=== PATIENT | male | born 2000 | race Two or more races ===

== ENCOUNTER 2024-11-22 13:13 | Outpatient (AMB) | payer BC, MEDICAID, SELFPAY ==
[2024-11-22 13:29] VITALS: BP 117/75; PULSE 81; RESP 19; TEMP 36.7; O2SAT 95; BMI 30.7
--- NOTE | 2024-11-22 13:29 | GSCOFFNT_ITS ---
Vital Signs - [facility] 11/22/24 13:29 Height 1.73 m Height Method Measured Weight 91.796 kg Weight Measurement Method Standing Scale BMI 30.7 BP 117/75 Blood Pressure Source Automatic Cuff Blood Pressure Location Left Upper Arm Position Sitting Respiration 19 Pulse 81 Pulse Source Monitor Temp 98.1 F Temp Source Temporal Artery Scan Pulse Oximetry (%) 95 Oxygen Delivery Method Room Air Med/Allergies Allergies & Medications Allergies No Known Allergies Allergy (Verified 11/22/24 13:30) Medication Reconciliation tramadol 50 mg tablet 50 mg PO Q6H PRN pain #30 tabs 10/08/23 [Rx Confirmed 11/22/24] MA Intake Visit Data Collection New Patient or Established: Established Patient (seen at [facility] within 3 years) Seen by Clinical Staff ONLY (RN/MA): No Reason for Visit:: PILONIDAL CYSTECTOMY Pain Present Currently: Yes (TAILBONE) Pain scale:: 4 Pain Scale Used: Lomas-Rene/Numerical Aircraft Technician Required: No PCP or OBGYN visit in last 3 months: Yes Hx Now: No Do You Feel Safe at Home: Yes Authorities Contacted: N/A Smoking Status Smoking Status: Never smoker Immunization / Flu Flu Vaccine in the Last 12 Months: Yes Flu Vaccine Exclusion Criteria: Already Received Past Medical History Past Medical History NEUROLOGIC: Negative Neurological Disorders or Seizures CARDIAC: Negative Cardiac Disorders or Congestive Heart Failure RESPIRATORY: Negative Chronic Obstructive Pulmonary Disease (COPD), Sputum Production, Wheezing, Smoking, Smoking Cessation Counseling, Smoking Exposure or Tobacco Use GASTROINTESTINAL: Negative Gastrointestinal Disorders or Hepatitis GENITOURINARY: Negative Genitourinary Disorders or Renal Disease ENDOCRINE: Negative Endocrine Disorders, Diabetes Mellitus Type 1 or Diabetes Mellitus Type 2 HEMATOLOGIC: Negative Blood Disorders OTHER HISTORY: Negative Hospitalization, Autoimmune Disease, Shingles, Blood Transfusions, Blood Transfusion Reaction, Anesthesia Reactions or Cancer Family History FAMILY HISTORY: Negative Family Psychiatric Problems, Family Respiratory Disorders, Family Cardiac Disorders, Family Gastrointestinal Problems, Family Cancer, Family Surgery or Family Anesthesia Reaction Social History SMOKING STATUS: Smoking status: Never smoker ALCOHOL: Alcohol Intake: Current ALCOHOL FREQUENCY: Alcohol Intake Frequency: holidays/special occasions only HOUSING: Housing: House [facility] HPI Narrative 24M s/p pilonidal cystectomy 09/2023, healed as of Dec 2023 presenting with pain and swelling to the area. Pt reports he noticed the wound opened about a month ago, he was packing it but then he noticed the more inferior aspect of the incision became more swollen and painful. He denies any fever and has not had any recent drainage, is otherwise feeling well with no other changes in his health ROS Review of Systems Systems Reviewed: All systems reviewed, normal except as documented Objective/Exam General General Appearance: alert, cooperative and well groomed Resp Respiratory exam: Absent respiratory distress Back Back exam: Present other (pilonidal cyst swelling and tenderness toward the gluteal cleft; probing this wound caused the more superior ulceration to open and drain blood. No surrounding erythema) Assessment & Plan Diagnosis / Problem List (1) Chronic recurrent pilonidal cyst: Status: Acute Assessment & Plan: 24M s/p pilonidal cystectomy 09/2023, healed as of Dec 2023 now presenting with signs and symptoms of recurrence. For now I explained pt needs repeat I&D to address the swelling, and he may now want to consider hair removal (he stated that he did not try this earlier due to the cost) but that a repeat excision could be undertaken once the infection improves Plan: F/u in 2 weeks Office Procedures GNS Level of Care Nursing/Assessment Patient Status: Established Patient Nursing Assessment/Reassesment: Medication Reconciliation, Update PMH in EMR and Vital Signs Coordination of Care: Complex Care and Chronic Disease 1-5, Consent,records obtained, informed consent, Education Simp Pt/Fam, Results/Orders obtained and Staff clarify orders Established Patient Charge Established Patient Point Assignment: 90 Established Patient Point Charge: EP Level 3 (80-115) Patient Portal Questionaires Social History Living Situation History Housing: House Tobacco History Smoking Status: Never smoker Alcohol History Alcohol Intake: Current Alcohol Intake Frequency: holidays/special occasions only Domestic Abuse History Do You Feel Safe at Home: Yes Review of Systems Report any current symptoms Only answer those that you have currently: Past Medical History Past Medical History Have you ever been diagnosed with any of the following: Neurological Problems Seizures: No Cardiology Problems Congestive Heart Failure: No Respiratory Problems Chronic Obstructive Pulmonary Disease (COPD): No Cough: No Wheezing: No Smoking: No Smoking Cessation Counseling: No Smoking Exposure: No Tobacco Use: No Stomache/Intestinal Problems Hepatitis: No Genital/Urinary Problems Renal Disease: No Endocrine Problems Diabetes Mellitus Type 1: No Diabetes Mellitus Type 2: No Other Problems Hospitalization: No Autoimmune Disease: No Shingles: No Blood Transfusions: No Blood Transfusion Reaction: No Anesthesia Reactions: No Cancer: No
== END 2024-11-22 13:52 | disposition home or self-care (01) ==
LOC: HODSRG 13:13
PROVIDERS: PCP Physician Assistant Medical; Referring Provider Physician Assistant Medical; Supervising Provider Surgery; Visit Provider Surgery
DX: L05.91 Pilonidal cyst without abscess (principal)
CPT/HCPCS: 99213; G0463

== ENCOUNTER 2024-12-13 13:00 | Outpatient (AMB) | payer BC, MEDICAID, SELFPAY ==
[2024-12-13 13:05] VITALS: BP 122/75; PULSE 70; RESP 16; TEMP 36.5; O2SAT 97; BMI 31.4
--- NOTE | 2024-12-13 13:05 | GSCOFFNT_ITS ---
Vital Signs - [facility] 12/13/24 13:05 Height 1.73 m Height Method Measured Weight 94.092 kg Weight Measurement Method Standing Scale BMI 31.4 BP 122/75 Blood Pressure Source Automatic Cuff Blood Pressure Location Left Upper Arm Position Sitting Respiration 16 Pulse 70 Pulse Source Monitor Temp 97.7 F Temp Source Temporal Artery Scan Pulse Oximetry (%) 97 Oxygen Delivery Method Room Air Med/Allergies Allergies & Medications Allergies No Known Allergies Allergy (Verified 12/13/24 13:06) Medication Reconciliation tramadol 50 mg tablet 50 mg PO Q6H PRN pain #30 tabs 10/08/23 [Rx Confirmed 12/13/24] MA Intake Visit Data Collection New Patient or Established: Established Patient (seen at [facility] within 3 years) Seen by Clinical Staff ONLY (RN/JUDY): No Reason for Visit:: 2 WEEK F/U CYST Pain Present Currently: No Pain Scale Used: Lomas-Rene/Numerical Calender Machine Operator Helper Required: No PCP or OBGYN visit in last 3 months: Yes Hx Now: No Do You Feel Safe at Home: Yes Authorities Contacted: N/A Smoking Status Smoking Status: Never smoker Immunization / Flu Flu Vaccine in the Last 12 Months: No Flu Vaccine Exclusion Criteria: Refused by Patient Past Medical History Past Medical History NEUROLOGIC: Negative Neurological Disorders or Seizures CARDIAC: Negative Cardiac Disorders or Congestive Heart Failure RESPIRATORY: Negative Chronic Obstructive Pulmonary Disease (COPD), Sputum Production, Wheezing, Smoking, Smoking Cessation Counseling, Smoking Exposure or Tobacco Use GASTROINTESTINAL: Negative Gastrointestinal Disorders or Hepatitis GENITOURINARY: Negative Genitourinary Disorders or Renal Disease ENDOCRINE: Negative Endocrine Disorders, Diabetes Mellitus Type 1 or Diabetes Mellitus Type 2 HEMATOLOGIC: Negative Blood Disorders OTHER HISTORY: Negative Hospitalization, Autoimmune Disease, Shingles, Blood Transfusions, Blood Transfusion Reaction, Anesthesia Reactions or Cancer Family History FAMILY HISTORY: Negative Family Psychiatric Problems, Family Respiratory Disorders, Family Cardiac Disorders, Family Gastrointestinal Problems, Family Cancer, Family Surgery or Family Anesthesia Reaction Social History SMOKING STATUS: Smoking status: Never smoker ALCOHOL: Alcohol Intake: Current ALCOHOL FREQUENCY: Alcohol Intake Frequency: holidays/special occasions only HOUSING: Housing: House HPI HPI Narrative 24M s/p pilonidal cystectomy 09/2023 here for follow up of recurrent drainage from the area. Pt states that for the last few days he has not had any drainage, he continues to cover the wound but his pain is also improved ROS Review of Systems Systems Reviewed: All systems reviewed, normal except as documented Objective/Exam General General Appearance: alert, cooperative and well groomed Resp Respiratory exam: Absent respiratory distress Back Back exam: Present other (pilonidal cyst with punctate opening, no surrounding erythema, no bleeding or drainage, wound cauterized with silver nitrate) Assessment & Plan Diagnosis / Problem List (1) Chronic recurrent pilonidal cyst: Status: Acute Assessment & Plan: 24M s/p pilonidal cystectomy 09/2023 here for follow up of recurrent drainage from the area. I explained that repeat cystectomy should still be postponed until the wound is fully healed. All questions were answered and pt is agreeable with this plan Plan: F/u in 3 weeks Orders: Orders Silver nitrate applicator topical stick Today Office Procedures GNS Level of Care Nursing/Assessment Patient Status: Established Patient Nursing Assessment/Reassesment: Medication Reconciliation, Update PMH in EMR and Vital Signs Coordination of Care: Complex Care and Chronic Disease 1-5, Consent,records obtained, informed consent, Education Simp Pt/Fam, Results/Orders obtained and Staff clarify orders Established Patient Charge Established Patient Point Assignment: 90 Established Patient Point Charge: EP Level 3 (80-115) Surgical Proc/IM SQ injection Minor Surgical Procedure: Yes (SILVER NITRATE ) Medication Given Medication Given Medication Given: Yes Documented Dose Given: 2 Route: TOPICAL Office Meds silver nitrate applicators 75 %-25 % topical stick Performing Provider: Monse Gasca MD Performing Location: [facility] Administered by: Monse Gasca MD on 12/13/24 13:47 Dose Route Admin Location Dispensed Lot Number Expiration Date Pack age [facility] Registered Nurse Cardiac Telemetry 2 ea topical TOPICAL 2 ea [id number] 10/15/26 Patient Portal Questionaires Social History Living Situation History Housing: House Tobacco History Smoking Status: Never smoker Alcohol History Alcohol Intake: Current Alcohol Intake Frequency: holidays/special occasions only Domestic Abuse History Do You Feel Safe at Home: Yes Review of Systems Report any current symptoms Only answer those that you have currently: Past Medical History Past Medical History Have you ever been diagnosed with any of the following: Neurological Problems Seizures: No Cardiology Problems Congestive Heart Failure: No Respiratory Problems Chronic Obstructive Pulmonary Disease (COPD): No Cough: No Wheezing: No Smoking: No Smoking Cessation Counseling: No Smoking Exposure: No Tobacco Use: No Stomache/Intestinal Problems Hepatitis: No Genital/Urinary Problems Renal Disease: No Endocrine Problems Diabetes Mellitus Type 1: No Diabetes Mellitus Type 2: No Other Problems Hospitalization: No Autoimmune Disease: No Shingles: No Blood Transfusions: No Blood Transfusion Reaction: No Anesthesia Reactions: No Cancer: No
== END 2024-12-13 13:35 | disposition home or self-care (01) ==
LOC: HODSRG 13:00
PROVIDERS: PCP Physician Assistant Medical; Referring Provider Physician Assistant Medical; Supervising Provider Surgery; Visit Provider Surgery
DX: L05.91 Pilonidal cyst without abscess (principal)
CPT/HCPCS: 17250; 99213; A9270; G0463

== ENCOUNTER 2025-01-03 12:55 | Outpatient (AMB) | payer BC, MEDICAID, SELFPAY ==
[2025-01-03 13:10] VITALS: BP 118/71; PULSE 47; RESP 16; TEMP 36.3; O2SAT 98; BMI 31.2
--- NOTE | 2025-01-03 13:10 | PD.GSCLVISIT ---
Vital Signs - [facility] 01/03/25 13:10 Height 1.73 m Height Method Measured Weight 93.128 kg Weight Measurement Method Standing Scale BMI 31.2 BP 118/71 Blood Pressure Source Automatic Cuff Blood Pressure Location Left Upper Arm Position Sitting Respiration 16 Pulse 47 L Pulse Source Monitor Temp 97.4 F Temp Source Temporal Artery Scan Pulse Oximetry (%) 98 Oxygen Delivery Method Room Air Med/Allergies Allergies & Medications Allergies No Known Allergies Allergy (Verified 01/03/25 13:11) Medication Reconciliation tramadol 50 mg tablet 50 mg PO Q6H PRN pain #30 tabs 10/08/23 [Rx Confirmed 01/03/25] MA Intake Visit Data Collection New Patient or Established: Established Patient (seen at [facility] within 3 years) Seen by Clinical Staff ONLY (RN/MA): No Reason for Visit:: 3 WEEK F/U Pain Present Currently: No Pain Scale Used: Lomas-Rene/Numerical Telecommunication Operator Required: No PCP or OBGYN visit in last 3 months: Yes Hx Now: No Do You Feel Safe at Home: Yes Authorities Contacted: N/A Smoking Status Smoking Status: Never smoker Immunization / Flu Flu Vaccine in the Last 12 Months: Yes Flu Vaccine Exclusion Criteria: Already Received Past Medical History Past Medical History NEUROLOGIC: Negative Neurological Disorders or Seizures CARDIAC: Negative Cardiac Disorders or Congestive Heart Failure RESPIRATORY: Negative Chronic Obstructive Pulmonary Disease (COPD), Sputum Production, Wheezing, Smoking, Smoking Cessation Counseling, Smoking Exposure or Tobacco Use GASTROINTESTINAL: Negative Gastrointestinal Disorders or Hepatitis GENITOURINARY: Negative Genitourinary Disorders or Renal Disease ENDOCRINE: Negative Endocrine Disorders, Diabetes Mellitus Type 1 or Diabetes Mellitus Type 2 HEMATOLOGIC: Negative Blood Disorders OTHER HISTORY: Negative Hospitalization, Autoimmune Disease, Shingles, Blood Transfusions, Blood Transfusion Reaction, Anesthesia Reactions or Cancer Family History FAMILY HISTORY: Negative Family Psychiatric Problems, Family Respiratory Disorders, Family Cardiac Disorders, Family Gastrointestinal Problems, Family Cancer, Family Surgery or Family Anesthesia Reaction Social History SMOKING STATUS: Smoking status: Never smoker ALCOHOL: Alcohol Intake: Current ALCOHOL FREQUENCY: Alcohol Intake Frequency: holidays/special occasions only HOUSING: Housing: House HPI HPI Narrative HISTORY OF PRESENT ILLNESS I, Monse Gasca, have obtained verbal consent from the patient, to be recorded during this encounter which may include, but not limited to, medical history, examination, treatment plans, and relevant health information.? Patient was informed that recording will be read and reviewed by myself before inclusion in the medical chart. The patient is a 24-year-old male who presents for follow-up of a pilonidal cyst, which surgically excised 09/2023. He reports that the cyst initially closed after treatment at the last visit but has since reopened. The more inferior aspect of the wound has remained closed. He continues to experience some drainage from the cyst, which was minimal until yesterday when he noticed an increase in blood. He attributes this to his physical activity at work. He is not experiencing any fever or other symptoms. He expresses interest in scheduling another surgery, possibly in early 2025, as his current condition does not interfere with his job. He also wishes to schedule a follow-up appointment to monitor the cyst. He mentions that his insurance has changed to a private one through his employer. ROS Review of Systems Systems Reviewed: All systems reviewed, normal except as documented Objective/Exam General General Appearance: alert, cooperative and well groomed Resp Respiratory exam: Absent respiratory distress Back Back exam: Present other (pilonidal cyst with open sinus toward the superior aspect, which was cauterized again with silver nitrate today. No surrounding erythema, no fluctuance or tenderness) Assessment & Plan Diagnosis / Problem List (1) Chronic recurrent pilonidal cyst: Status: Acute Assessment & Plan: The pilonidal cyst is open but does not appear infected. There is some drainage with a slight increase in blood, likely due to physical activity. A chemical treatment was applied today to manage the cyst temporarily. The patient is advised to contact the office to schedule an appointment within 30 days of the planned surgery. If the cyst continues to drain, another chemical treatment can be administered. If the cyst remains stable, surgery can be scheduled for a later date, potentially next year, depending on the patient's work schedule and preference. The patient has private insurance which may facilitate obtaining a vacuum machine to speed up healing post-surgery. Risks, benefits, and alternatives of treatment were discussed. The chemical treatment is a temporary measure to manage the cyst and may cause some burning sensation. Surgery is a more definitive treatment option but can be scheduled at the patient's convenience. The patient is informed that the surgery is typically performed on Wednesdays and should be scheduled when the cyst is not actively infected. The patient is also advised to call the office if any problems arise before the next appointment. Plan: F/u in 2 mos Orders: Orders Silver nitrate applicator topical stick Today Office Procedures GNS Level of Care Nursing/Assessment Patient Status: Established Patient Nursing Assessment/Reassesment: Medication Reconciliation, Update PMH in EMR and Vital Signs Coordination of Care: Complex Care and Chronic Disease 1-5, Education Complex Pt/Fam, Consent,records obtained, informed consent, Results/Orders obtained and Staff clarify orders Established Patient Charge Established Patient Point Assignment: 95 Established Patient Point Charge: EP Level 3 (80-115) Surgical Proc/IM SQ injection Minor Surgical Procedure: Yes (SILVER NITRATE) Medication Given Medication Given Medication Given: Yes Documented Dose Given: 2 Route: TOPICAL Office Meds silver nitrate applicators 75 %-25 % topical stick Performing Provider: Monse Gasca MD Performing Location: [facility] Administered by: Monse Gasca MD on 01/03/25 13:58 Dose Route Admin Location Dispensed Lot Number Expiration Date Package NDC NDC Mover 2 ea topical TOPICAL 2 ea [id number] 03/30/25 Patient Portal Questionaires Social History Living Situation History Housing: House Tobacco History Smoking Status: Never smoker Alcohol History Alcohol Intake: Current Alcohol Intake Frequency: holidays/special occasions only Domestic Abuse History Do You Feel Safe at Home: Yes Review of Systems Report any current symptoms Only answer those that you have currently: Past Medical History Past Medical History Have you ever been diagnosed with any of the following: Neurological Problems Seizures: No Cardiology Problems Congestive Heart Failure: No Respiratory Problems Chronic Obstructive Pulmonary Disease (COPD): No Cough: No Wheezing: No Smoking: No Smoking Cessation Counseling: No Smoking Exposure: No Tobacco Use: No Stomache/Intestinal Problems Hepatitis: No Genital/Urinary Problems Renal Disease: No Endocrine Problems Diabetes Mellitus Type 1: No Diabetes Mellitus Type 2: No Other Problems Hospitalization: No Autoimmune Disease: No Shingles: No Blood Transfusions: No Blood Transfusion Reaction: No Anesthesia Reactions: No Cancer: No
== END 2025-01-03 14:04 | disposition home or self-care (01) ==
LOC: HODSRG 12:55
PROVIDERS: PCP Physician Assistant Medical; Referring Provider Physician Assistant Medical; Supervising Provider Surgery; Visit Provider Surgery
DX: L05.91 Pilonidal cyst without abscess (principal)
CPT/HCPCS: 17250; 99213; A9270; G0463

== ENCOUNTER 2025-03-07 13:07 | Outpatient (AMB) | payer BC, MEDICAID, SELFPAY ==
[2025-03-07 13:40] VITALS: BP 116/72; PULSE 78; RESP 16; TEMP 36.5; O2SAT 97; BMI 32.4
--- NOTE | 2025-03-07 13:40 | GSCOFFNT_ITS ---
Vital Signs - [facility] 03/07/25 13:40 Height 1.73 m Height Method Measured Weight 97.097 kg Weight Measurement Method Standing Scale BMI 32.4 BP 116/72 Blood Pressure Source Automatic Cuff Blood Pressure Location Left Upper Arm Position Sitting Respiration 16 Pulse 78 Pulse Source Monitor Temp 97.7 F Temp Source Temporal Artery Scan Pulse Oximetry (%) 97 Oxygen Delivery Method Room Air Med/Allergies Allergies & Medications Allergies No Known Allergies Allergy (Verified 03/07/25 13:43) Medication Reconciliation tramadol 50 mg tablet 50 mg PO Q6H PRN pain #30 tabs 10/08/23 [Rx Confirmed 03/07/25] mupirocin 2 % topical ointment (Centany) 1 applic topical BID #22 grams 03/07/25 [Rx] MA Intake Visit Data Collection New Patient or Established: Established Patient (seen at [facility] within 3 years) Seen by Clinical Staff ONLY (RN/MA): No Reason for Visit:: 2 MONTH F/U Pain Present Currently: No Pain Scale Used: Lomas-Rene/Numerical Hub Cutter Required: No PCP or OBGYN visit in last 3 months: Yes Hx Now: No Do You Feel Safe at Home: Yes Authorities Contacted: N/A Smoking Status Smoking Status: Never smoker Immunization / Flu Flu Vaccine in the Last 12 Months: No Flu Vaccine Exclusion Criteria: Refused by Patient Past Medical History Past Medical History NEUROLOGIC: Negative Neurological Disorders or Seizures CARDIAC: Negative Cardiac Disorders or Congestive Heart Failure RESPIRATORY: Negative Chronic Obstructive Pulmonary Disease (COPD), Sputum Production, Wheezing, Smoking, Smoking Cessation Counseling, Smoking Exposure or Tobacco Use GASTROINTESTINAL: Negative Gastrointestinal Disorders or Hepatitis GENITOURINARY: Negative Genitourinary Disorders or Renal Disease ENDOCRINE: Negative Endocrine Disorders, Diabetes Mellitus Type 1 or Diabetes Mellitus Type 2 HEMATOLOGIC: Negative Blood Disorders OTHER HISTORY: Negative Hospitalization, Autoimmune Disease, Shingles, Blood Transfusions, Blood Transfusion Reaction, Anesthesia Reactions or Cancer Family History FAMILY HISTORY: Negative Family Psychiatric Problems, Family Respiratory Diso rders, Family Cardiac Disorders, Family Gastrointestinal Problems, Family Cancer, Family Surgery or Family Anesthesia Reaction Social History SMOKING STATUS: Smoking status: Never smoker ALCOHOL: Alcohol Intake: Current ALCOHOL FREQUENCY: Alcohol Intake Frequency: holidays/special occasions only HOUSING: Housing: House [facility] HPI Narrative 25M who underwent pilonidal cystectomy 09/2023 seen again since 10/2024 with kev bernal. Pt has been wanting to hold off on another surgery but is now ready to schedule for May, when he will have help from his parents to recuperate. He was recently having pain to the area but then began having drainage as of yesterday which relieved the pain. The drain is pink/yellow, he denies any fever or malaise and is not using any remedies to the area ROS Review of Systems Systems Reviewed: All systems reviewed, normal except as documented Objective/Exam General General Appearance: alert, cooperative and well groomed Resp Respiratory exam: Absent respiratory distress Back Back exam: Present other (pilonidal cyst with multiple sinus tracts, minimal pink drainage, no surrounding erythema, no fluctuance or tenderness) Assessment & Plan Diagnosis / Problem List (1) Chronic recurrent pilonidal cyst: Status: Acute Assessment & Plan: 25M with recurrent pilonidal cyst after excision 09/2023, requesting repeat excision May 2025 Plan: Will follow up in Mar 2025 Patient Portal Questionaires Social History Living Situation History Housing: House Tobacco History Smoking Status: Never smoker Alcohol History Alcohol Intake: Current Alcohol Intake Frequency: holidays/special occasions only Domestic Abuse History Do You Feel Safe at Home: Yes Review of Systems Report any current symptoms Only answer those that you have currently: Past Medical History Past Medical History Have you ever been diagnosed with any of the following: Neurological Problems Seizures: No Cardiology Problems Congestive Heart Failure: No Respiratory Problems Chronic Obstructive Pulmonary Disease (COPD): No Cough: No Wheezing: No Smoking: No Smoking Cessation Counseling: No Smoking Exposure: No Tobacco Use: No Stomache/Intestinal Problems Hepatitis: No Genital/Urinary Problems Renal Disease: No Endocrine Problems Diabetes Mellitus Type 1: No Diabetes Mellitus Type 2: No Other Problems Hospitalization: No Autoimmune Disease: No Shingles: No Blood Transfusions: No Blood Transfusion Reaction: No Anesthesia Reactions: No Cancer: No
== END 2025-03-07 13:50 | disposition home or self-care (01) ==
LOC: HODSRG 13:07
PROVIDERS: PCP Physician Assistant Medical; Referring Provider Physician Assistant Medical; Supervising Provider Surgery; Visit Provider Surgery
DX: L05.91 Pilonidal cyst without abscess (principal)
CPT/HCPCS: 99213; G0463